=== PATIENT | female | born 1970 | race Two or more races ===

== ENCOUNTER 2019-10-10 07:47 | Outpatient (CLI) | payer OTHER ==
[2019-10-10] MEDS ORDERED: LANTUS SOL100 UNIT/1 SUBCUTANEO (11:04)
[2019-10-10] MEDS ORDERED: HUMULIN R500 UNIT/2 SUBCUTANEO (11:04)
[2019-10-10] MEDS ORDERED: COZAAR100 MG PO (11:05)
[2019-10-10] MEDS ORDERED: NORVASC10 MG PO (11:05)
[2019-10-10] MEDS ORDERED: TOPROL XL50 M1 PO (11:05)
[2019-10-10] MEDS ORDERED: ATORVASTATIN CA20 MG PO (11:06)
== END 2019-10-10 07:58 | disposition home or self-care (01) ==
LOC: LAB 07:47
DX: D68.8 Other specified coagulation defects (principal); N39.0 Urinary tract infection, site not specified; Z01.812 Encounter for preprocedural laboratory examination; D64.89 Other specified anemias; E88.81 Metabolic syndrome and other insulin resistance; J18.8 Other pneumonia, unspecified organism; Z01.811 Encounter for preprocedural respiratory examination

== ENCOUNTER 2019-11-07 12:31 | Emergency (ER) | payer OTHER ==
[~2019-11-07] VITALS: Ht 160 cm; Wt 75.7 kg
[~2019-11-07 12:31] MED LIST: ATORVASTATIN CA20 MG PO; COZAAR100 MG PO; HUMULIN R500 UNIT/2 SUBCUTANEO; LANTUS SOL100 UNIT/1 SUBCUTANEO; NORVASC10 MG PO; TOPROL XL50 M1 PO
[2019-11-07] MEDS ORDERED: TAPAZOLE5 M1 PO (13:06)
[2019-11-07] MEDS ORDERED: TAPAZOLE10 MG PO (13:13)
== END 2019-11-07 20:08 | disposition home or self-care (01) ==
LOC: ER 12:31
DX: R60.0 Localized edema (principal)

== ENCOUNTER → 2020-08-30 | Day surgery (SDC) | payer OTHER ==
[~2020-08-30] MED LIST changes: +TAPAZOLE10 MG PO; +TAPAZOLE5 M1 PO
== END | disposition home or self-care (01) ==
LOC: ADM 08-23 08:30 → CIR.AMB 07:00
PROVIDERS: ATTEND Obstetrics & Gynecology
DX: N95.0 Postmenopausal bleeding (principal); Z20.828 Contact with and (suspected) exposure to other viral communicable diseases